=== PATIENT | female | born 1960 | race Caucasian/White ===

== ENCOUNTER 2021-04-09 10:03 | Outpatient (CLI) | payer BC, SELFPAY | END 2021-04-09 10:04 | disposition home or self-care (01) | PROVIDERS: PCP Family Medicine; Visit Provider Urology | DX: Z01.818 Encounter for other preprocedural examination (principal); N39.3 Stress incontinence (female) (male) | CPT/HCPCS: 87086 ==

== ENCOUNTER 2021-04-16 01:45 | Day surgery (SDC) | payer BC, SELFPAY ==
[2021-04-07 08:35] VITALS: BMI 24.5
--- NOTE | 2021-04-07 08:46 | PC.NURSE ---
Report to the Outpatient Waiting Room, entrance under the green pavilion located off [facility], at time 8:30 on date 04/16/21. OR Time: 10:30. - You and your visitor will be asked a series of questions to screen for COVID 19 for your protection. - A mask is required within the hospital. One visitor will be allowed to accompany the patient into the hospital. Patients visitor will be instructed to remain with patient at all times or leave the building. We will allow the visitor to come back to the postoperative area when patient is ready. Preoperative COVID Testing Requirements: No COVID Test needed if: (proof is required; if not received patient will have Rapid Test prior to entry) - Patient has received COVID Vaccine at least 14 days prior to procedure date or - Patient has positive COVID test result within last 90 days of surgery date. COVID Test needed if above criteria is not met Patients may have clear liquids (water, carbonated beverages, clear teas, apple juice) until 3 hours prior to surgery (7:30) with a maximum of 20 ounces. - No food from midnight until time of surgery Take the following medications with a SIP of water the morning of surgery: SYNTHROID Medications to discontinue per physician: N/A Date to take last dose: N/A Please no make-up, nail northern irish, hairspray, perfume, deodorant, or body powder the day of surgery. No jewelry (including any body piercings) or valuables the day of surgery, leave them at home. Please take a shower or bath the night before, or the morning of, surgery with an antibacterial soap. Wear comfortable, loose fitting clothing. - Jewelry must be removed prior to entering the operating room. Rings and piercings that are not removed may be cut off. - The hospital will not accept responsibility for valuables. - Please leave all valuables, including medications, at home the day of surgery. If you are going home after surgery, a licensed [employer] company driver must drive you home. - NO public transportation without another adult. - We recommend that an adult stay with you for 24 hours following discharge. - We also recommend that you do not drive, make important decision, drink alcoholic beverages, or take any drugs that were not prescribed by your health care provider for at least 24 hours after your discharge time. Follow any additional instructions given to you from your surgeon. Telephone instructions given to TAHMINA MIJARES and asked if any additional questions and then verbalized understanding. Patient advised to call surgeon office or pre surgery nurse liaison [phone] if any additional questions.
--- NOTE | 2021-04-11 19:24 | PM.IMHP ---
H&P: HPI History of Present Illness Date/Time: 04/11/21 19:24 61 yo with GEOAVNNI Chief Complaint: GEOVANNI Review of Systems Review of Systems: All systems reviewed & are unremarkable except as noted in HPI and below [facility] Past Medical History Medical History (Updated 04/11/21 @ 19:27 by Michael Meek MD) Arthritis Back pain Glucose intolerance Headache Migraine Ovary removal, prophylactic Thyroid disease Tonsillectomy planned Surgical History Surgical History H/O: hysterectomy Family History Family History Mother Family history of thyroid disease Family history of lung disease Sibling Family history of thyroid disease Father Family history of Alzheimer's disease Social History Social History Smoking status: Never smoker Alcohol intake: never Substance use: never Substance use type: does not use Spiritual care concerns: No Meds Home Medications and Allergies Home Medications Medication Instructions Recorded Confirmed Type cyclosporine 0.05 % eye drops 1 drop EACH EYE Q12H 06/04/19 04/07/21 History desipramine 10 mg tablet 10 mg PO HS 06/04/19 04/07/21 History fluticasone propionate 50 1 spray NASAL DAILY PRN 06/04/19 04/07/21 History mcg/actuation nasal spray,suspension omeprazole 20 mg capsule,delayed 20 mg PO DAILY 06/04/19 04/07/21 History release Synthroid 75 mcg tablet See Rx Instructions PO .COMPLEX 90 01/07/21 04/07/21 Rx Days #26 tablet NS Synthroid 88 mcg tablet See Rx Instructions PO .COMPLEX 90 01/07/21 04/07/21 Rx Days #65 tablet NS Allergies Allergy/AdvReac Type Severity Reaction Status Date / Time adhesive tape AdvReac Itching Verified 04/07/21 08:34 MOST ORAL PAIN PILLS CAUSE Allergy Unknown Vomiting Uncoded 04/07/21 08:33 SEVERE VOMITING \ Exam Narrative: A+O x3 normal breathing + urethral mobility Assessment and Plan Assessment and plan (1) GEOVANNI (stress urinary incontinence, female): Code(s): N39.3 - Stress incontinence (female) (male) Status: Acute Assessment and Plan: urethral sling
--- NOTE | 2021-04-16 07:08 | WPDHPUPDATE1 ---
History and Physical Update Update Date/Time: 04/16/21 07:08 History and Physical has been reviewed, including an updated exam of the patient. There are NO changes in the patient's condition. Risks, benefits, and alternatives have been discussed and questions answered. Patient agrees to proceed with procedure.
[2021-04-16] MEDS: LACTATED RINGERS 1,000 ML 30 ML IV CONT (08:22)
[2021-04-16 08:26] VITALS: BP 138/81; PULSE 72; RESP 18; TEMP 36.8; O2SAT 100; BMI 24.4
--- NOTE | 2021-04-16 08:31 | P.PNAN_ITS ---
Anes - Initial Pre Proc Eval Procedure: Operation Date: 04/16/21 09:45 Proposed Procedures p Urethral Sling - Michael Meek MD Date/Time: 04/16/21 08:31 Surgeon: Michael Meek MD Pre Op Diagnosis: stress incontinence Patient Data Age: 61 Gender: F Height: 1.64 m Weight: 65.6 kg Last Vital Signs Temp 36.8 C 04/16/21 08:26 Pulse 72 04/16/21 08:26 Resp 18 04/16/21 08:26 BP 138/81 04/16/21 08:26 Pulse Ox 100 04/16/21 08:26 Allergies Allergy/AdvReac Type Severity Reaction Status Date / Time adhesive tape AdvReac Itching Verified 04/16/21 08:09 MOST ORAL PAIN PILLS CAUSE Allergy Unknown Vomiting Uncoded 04/16/21 08:09 SEVERE VOMITING \ Home Medications Medication Instructions Recorded Confirmed Type cyclosporine 0.05 % eye drops 1 drop EACH EYE Q12H 06/04/19 04/16/21 History desipramine 10 mg tablet 10 mg PO HS 06/04/19 04/16/21 History fluticasone propionate 50 1 spray NASAL DAILY PRN 06/04/19 04/16/21 History mcg/actuation nasal spray,suspension omeprazole 20 mg capsule,delayed 20 mg PO DAILY 06/04/19 04/16/21 History release Synthroid 75 mcg tablet See Rx Instructions PO .COMPLEX 90 01/07/21 04/16/21 Rx Days #26 tablet NS Synthroid 88 mcg tablet See Rx Instructions PO .COMPLEX 90 01/07/21 04/16/21 Rx Days #65 tablet NS Patient hx anesthesia problems: none Family hx anesthesia problems: none Results Review: All pre-operative results and documents have been reviewed as part of the pre-operative evaluation. COUNT INCLUDES THE [facility] Past Medical History Medical History Arthritis Back pain Glucose intolerance Headache Migraine Ovary removal, prophylactic Thyroid disease Tonsillectomy planned Surgical History Surgical History H/O: hysterectomy Family History Family History Mother Family history of thyroid disease Family history of lung disease Sibling Family history of thyroid disease Father Family history of Alzheimer's disease Social History Social History Smoking status: Never smoker Alcohol intake: never Substance use: never Substance use type: does not use Living arrangements: with family Spiritual care concerns: No Anes - Eval Final PreProcedure Day of Procedure 04/16/21 08:31 Patient weight: normal Heart: regular rate and rhythm Lungs: clear to auscultation Airway: Mallampati scale class II Neurological: alert and oriented Last oral intake: >/= 8 hours ASA classification: II Emergent: no Anesthetic plan: proceed Anesthesia type and monitoring: general GIVS and standard monitoring Results Review: All pre-operative results and documents have been reviewed as part of the pre-operative evaluation. Informed Consent: The patient's anesthetic plan and its attendant risks and benefits were discussed with the patient/family/POA. Questions were solicited and answers provided to the satisfaction of the patient/family/POA.
[2021-04-16] MEDS: ceFAZolin 2 GM/D5W 50 ML 2 GM/50 ML BAG IVPB (09:34)
[2021-04-16] MEDS: KETOROLAC 30 MG/ML VIAL (*BKC) IV PUSH (09:40)
[2021-04-16] MEDS: BUPIVACAINE/EPINEPHRINE 0.25% 10 ML VIAL INFILTRATE (09:46)
[2021-04-16 10:02] VITALS: BP 122/79; PULSE 64; RESP 14; O2SAT 93
--- NOTE | 2021-04-16 10:02 | W.PM.PROC2 ---
Procedure Note - Detailed Date of Procedure 04/16/21 Pre-op Diagnosis stress incontinence Post-op Diagnosis same Procedure Performed mid urethral sling cystoscopy Surgeon Michael Meek MD Indications This is a female with confirm stress urinary incontinence. She desires surgical correction. She understands the risks of bleeding, infection, injury to the urinary tract, vaginal mesh extrusion, urinary tract mesh erosion, obstructive voiding requiring a secondary procedure, hip and leg pain, dyspareunia, inability to improve overactive bladder symptoms. She agrees to proceed. Description of Procedure She was correctly identified. Informed consent obtained. She was brought the operating room. She was given appropriate anesthesia. She was given appropriate perioperative antibiotics. A time-out performed. I marked out the site of the inner thigh incisions. Changes the postmenopausal atrophic vaginitis are noted. I anesthetized the skin and made those incisions. I anesthetized the anterior vaginal wall over the mid urethra. I made a 1 cm incision. I dissected out laterally taking great care not to injure the refilled vaginal wall. I passed the helical trocars. First on the left. Then on the right. I did this from the thigh incision towards the vaginal incision. The sling was connected to the trocars and brought out through the thigh incision. I tensioned the sling appropriately. I cut and the plastic sheaths. I then closed the incision with 2 0 Vicryl. On cystoscopy there is no tumors or surgical artifact. There was no surgical artifact in the urethra. I adjusted the sling surgery to be no leakage on Crede maneuver. I cut the excess sling material. Close incisions with glue. She was awakened and transferred to the PACU in stable condition. Implants Urethral sling Drains No Packing No Pathology none sent Complications No immediate complications Condition stable Disposition PACU
[2021-04-16 10:32] VITALS: BP 127/88; PULSE 57; RESP 14; O2SAT 97
[2021-04-16 10:50] VITALS: BP 131/86; PULSE 63; RESP 14
== END 2021-04-16 11:00 | disposition home or self-care (01) ==
PROVIDERS: PCP Family Medicine; Visit Provider Urology
PROC: (CPT 57288; principal; 2021-04-16 09:45)
DX: N39.3 Stress incontinence (female) (male) (principal); N95.2 Postmenopausal atrophic vaginitis; M19.90 Unspecified osteoarthritis, unspecified site; E03.9 Hypothyroidism, unspecified; E74.39 Other disorders of intestinal carbohydrate absorption
CPT/HCPCS: 57288; C1771; J0690; J1100; J1885; J2405; J2704; J3010; J7120

== ENCOUNTER → 2021-07-24 08:43 | Outpatient (CLI) | payer BC, SELFPAY ==
--- NOTE | ~2021-07-24 | XR_ITS ---
EXAM: XR foot LT min 3V, XR foot RT min 3V DATE: 07/24/2021 09:07 HISTORY: Other specified soft tissue disorders . COMPARISON: None available. FINDINGS: Decreased mineralization. No fracture or dislocation. No lytic or blastic lesion. Mild deg enerative changes in the interphalangeal joints of the toes and midfoot joints. Bilateral plantar ent hesopathy. Bilateral loss of the longitudinal arch. No erosion or periosteal change. Soft tissues wit hin normal limits. IMPRESSION: Osteopenia. Mild degenerative change in the toes and midfoot joints. Pes planus. Plantar enthesopathy. Reviewed, dictated and finalized at location K. IMPRESSION: Osteopenia. Mild degenerative change in the toes and midfoot joints . Pes planus. Plantar enthesopathy.
--- NOTE | ~2021-07-24 | XR_ITS ---
EXAM: XR hand BI arthritis min 3V DATE: 07/24/2021 09:07 HISTORY: Other specified soft tissue disorders . COMPARISON: None available. FINDINGS: Decreased mineralization. No fracture or dislocation. No lytic or blastic lesion. Severe l eft and moderate right trapeziometacarpal joint degenerative change. Narrowing, osteophytosis, and gu ll wing deformities in the DIP joints bilaterally. Similar but less progressive changes are seen in t he PIP joints of the fingers and the thumb interphalangeal joints. No periosteal change. Soft tissues within normal limits. IMPRESSION: Osteoarthritis of the bilateral trapeziometacarpal joints and interphalangeal joints of t he digits, with erosive changes in the DIPs as can be seen with erosive osteoarthritis. Reviewed, dictated and finalized at location K. IMPRESSION: Osteoarthritis of the bilateral trapeziometacarpal joints and inter phalangeal joints of the digits, with erosive changes in the DIPs as can be see n with erosive osteoarthritis.
== END ==
PROVIDERS: PCP Family Medicine; Visit Provider Internal Medicine
DX: M79.89 Other specified soft tissue disorders (principal); M19.072 Primary osteoarthritis, left ankle and foot; M19.071 Primary osteoarthritis, right ankle and foot; M19.042 Primary osteoarthritis, left hand; M19.041 Primary osteoarthritis, right hand
CPT/HCPCS: 73130; 73630

== ENCOUNTER → 2021-11-16 13:25 | Outpatient (CLI) | payer BC, SELFPAY ==
--- NOTE | ~2021-11-16 | DEXA_ITS ---
Bone Density Report Name: TAHMINA MIJARES Age: 61 Sex: Female Ethnicity: White Date of : 1960 Indication: postmenopausal; screening for osteoporosis; height loss; hysterectomy; Referring Provider: RICHARD OWENS Study: Bone densitometry was performed. Exam Date: November 16, 2021 Accession number: [id number] Bone Density: Region BMD T-score Z-score Classification AP Spine (L1-L4) 0.865 -1.7 -0.2 Osteopenia Femoral Neck (Left) 0.764 -0.8 0.5 Normal Total Hip (Left) 0.842 -0.8 0.2 Normal Femoral Neck (Right) 0.776 -0.7 0.6 Normal Total Hip (Right) 0.857 -0.7 0.3 Normal Total Hip Mean 0.850 -0.8 0.3 Normal World Health Organization criteria for BMD impression classify patients as: Normal (T-score at or above -1.0), Osteopenia (T-score between -1.0 and -2.5), or Osteoporosis (T-score at or below -2.5). 10-year Fracture Risk(1): Major Osteoporotic Fracture 7.0% Hip Fracture 0.3% Reported Risk Factors: [place] (), Neck BMD=0.764, BMI=24.5 (1) FRAX(R) Version 3.08. Fracture probability calculated for an untreated patient. Fracture probability may be lower if the patient has received treatment. Clinical Information Provided by Patient: Has used the following medications: Vitamin D Has the following medical conditions: Hysterectomy Patient maximum height was 66 Menopause Age: 51 Onset of menses at age 14 Number of children 3 Impression: The patient has low bone mass, based on the Total Spine T-score. The patient has an estimated ten-year risk of hip fracture of 0.3% and an estimated ten-year risk of major fracture of 7%, based on the WHO FRAX algorithm. Discussion: BONE DENSITY IS LOW AT ONE OR MORE SKELETAL SITES. This patient's lowest T-score is low at one or more skeletal sites. It meets the World Health Organization's (WHO) criteria for ?low bone mass? (T-score between -1.0 and -2.5). The patient's 10-year risk of fracture as calculated by FRAX is less than the threshold where pharmacological therapy is recommended by the National Osteoporosis Foundation (NOF). However, all treatment decisions require clinical judgment and consideration of individual patient factors, including patient preferences, comorbidities, previous drug use, risk factors not captured in the FRAX model (e.g., frailty, falls, vitamin D deficiency, increased bone turnover, interval significant decline in bone density) and possible under or overestimation of fracture risk by FRAX. The patient should follow a healthful lifestyle (good nutrition with adequate calcium and vitamin D, and appropriate weight-bearing exercise). Follow-Up: Consider repeating this study in 2 to 3 years to reassess this patient's status, or sooner if there is some new clinical indication. Reported by: WALE on 11/16/2021 1:51:00 PM.
== END ==
PROVIDERS: PCP Family Medicine; Visit Provider Family Medicine
DX: Z78.0 Asymptomatic menopausal state (principal); M85.859 Other specified disorders of bone density and structure, unspecified thigh
CPT/HCPCS: 77080

== ENCOUNTER → 2022-12-20 11:33 | Outpatient (CLI) | payer BC, SELFPAY ==
--- NOTE | ~2022-12-20 | XR_ITS ---
XR chest 2V DATE: 12/20/2022 11:51 INDICATION: Cough TECHNIQUE: 2 views COMPARISON: None FINDINGS: Heart size is within normal range. There is aortic calcification and tortuosity. No hilar or mediastinal enlargement. Moderate bilateral hyperinflation. No pulmonary infiltrate or consolidat ion, pulmonary vascular congestion or pleural effusion or pneumothorax. Diffuse osteopenia. IMPRESSION: Moderate hyperinflation; otherwise no active cardiopulmonary disease Reviewed, dictated and finalized at location L. IMPRESSION: Moderate hyperinflation; otherwise no active cardiopulmonary diseas e
== END ==
PROVIDERS: PCP Internal Medicine; Visit Provider Family Medicine
DX: R05.9 Cough, unspecified (principal); R91.8 Other nonspecific abnormal finding of lung field
CPT/HCPCS: 71046

== ENCOUNTER → 2022-12-27 07:33 | Outpatient (CLI) | payer BC, SELFPAY ==
--- NOTE | ~2022-12-27 | US_ITS ---
Limited Abdominal Sonogram: Real-time sonographic imaging of the right upper quadrant was performed. Clinical History: Right upper quadrant pain Findings: The liver appears normal with no evidence of mass lesion or bile duct dilatation. Main por el vein demonstrates normal direction of flow. The gallbladder is well distended, and contains possi ble minimal sludge. The common bile duct measures 4 mm. The visualized pancreas, aorta, and IVC are unremarkable. Impression: Possible minimal gallbladder sludge. Reviewed, dictated and finalized at location M. CTION MOLD TOOLING TECHNICIAN Impression: Possible minimal gallbladder sludge.
== END ==
PROVIDERS: PCP Family Medicine; Visit Provider Family Medicine
DX: R10.11 Right upper quadrant pain (principal)
CPT/HCPCS: 76705

== ENCOUNTER 2023-01-02 08:16 | Outpatient (CLI) | payer BC, SELFPAY ==
--- NOTE | ~2023-01-02 | NM_ITS ---
EXAMINATION: NM hepatobiliary wo pharm DATE: 01/02/2023 11:46 INDICATION: Right upper quadrant abdominal pain. COMPARISON: Ultrasound 11/26/2022 TECHNIQUE: 5.2 mCi Tc-99m mebrofenin (Choletec) was administered intravenously. Scintigraphic images of the abdomen were obtained for one hour. Then, the patient drank 8 oz Ensure, and imaging was cont inued for 60 minutes. FINDINGS: There is normal clearance of radiotracer from the blood pool. There is homogeneous tracer u ptake by the liver. Activity progresses to the bowel and gallbladder. Gallbladder ejection fraction (GBEF) was 45%. Note that with this technique, normal GBEF >= 33%. IMPRESSION: 1. Normal hepatobiliary scintigraphy. Reviewed, dictated and finalized at location A. E COMMERCE STRATEGIST
== END 2023-01-02 08:17 | disposition home or self-care (01) ==
LOC: ANHIMG 08:19
PROVIDERS: PCP Family Medicine; Visit Provider Family Medicine
DX: R10.11 Right upper quadrant pain (principal)
CPT/HCPCS: 78226; A9537

== ENCOUNTER 2023-07-20 11:52 | Outpatient (CLI) | payer BC, SELFPAY ==
--- NOTE | ~2023-07-20 | US_ITS ---
EXAMINATION: US thyroid DATE: 07/20/2023 12:11 INDICATION: Dysphagia, unspecified. TECHNIQUE: Multiple ultrasound images of the thyroid were obtained. COMPARISON: None. FINDINGS: The right thyroid lobe measures 3.5 x 1.3 x 1.3 cm. The left thyroid lobe measures 4.0 x 1.3 x 1.2 c m. In the right thyroid lobe, there is a 2 mm nodule. IMPRESSION: 1. Small thyroid nodule, likely not clinically significant. No follow-up is needed. Reviewed, dictated and finalized at location A. IMPRESSION: 1. Small thyroid nodule, likely not clinically significant. No follow-up is nee ded.
== END 2023-07-20 11:53 ==
PROVIDERS: PCP Family Medicine; Visit Provider Internal Medicine Endocrinology, Diabetes & Metabolism
DX: E04.1 Nontoxic single thyroid nodule (principal)
CPT/HCPCS: 76536

== ENCOUNTER 2023-09-13 10:28 | Outpatient (CLI) | payer BC, SELFPAY ==
--- NOTE | ~2023-09-13 | XR_ITS ---
[id number] Ordering provider: Geno Mariee History: . R rib pain,R shoulder pain,R arm pain after fall . Comparison: None. FINDINGS: BONES: Possible fracture in the right posterior sixth, seventh and eighth ribs. These can be a summat ion shadows. LUNGS: No effusions or infiltrates. No pneumothorax. SOFT TISSUES: Normal. IMPRESSION: Possible fractures in the right sixth, seventh and eighth ribs. Follow-up advised. Reviewed, dictated and finalized at location A. IMPRESSION: Possible fractures in the right sixth, seventh and eighth ribs. Follow-up advis ed.
--- NOTE | ~2023-09-13 | XR_ITS ---
XR humerus RT Ordering provider: Mary Ellen Lake History: . R rib pain,R shoulder pain,R arm pain after fall . Comparison: None. FINDINGS: BONES: No acute fracture or dislocation. JOINT SPACES: Normal. SOFT TISSUES: Normal. IMPRESSION: No acute osseous abnormality right humerus. Reviewed, dictated and finalized at location A.
--- NOTE | ~2023-09-13 | XR_ITS ---
XR shoulder RT min 2V Ordering provider: Mary Ellen Lake History: . R rib pain,R shoulder pain,R arm pain after fall . Comparison: None. FINDINGS: BONES: No acute fracture or dislocation. JOINT SPACES: The acromioclavicular joint is normal. The glenohumeral joint is normal. SOFT TISSUES: Normal. IMPRESSION: No acute osseous abnormality right shoulder. Reviewed, dictated and finalized at location A.
== END 2023-09-13 10:29 ==
PROVIDERS: PCP Family Medicine
DX: R07.81 Pleurodynia (principal); M25.511 Pain in right shoulder
CPT/HCPCS: 71101; 73030; 73060

== ENCOUNTER 2024-02-29 08:33 | Outpatient (CLI) | payer BC, SELFPAY ==
--- NOTE | ~2024-02-29 | DEXA_ITS ---
Bone Density Report Name: TAHMINA MIJARES Age: 63 Sex: Female Ethnicity: White Date of : 1960 Indication: postmenopausal; screening for osteoporosis; height loss; hysterectomy; Referring Provider: ALYSIA WHEELER Study: Bone densitometry was performed. Exam Date: February 29, 2024 Accession number: [id number] Bone Density: Region BMD T-score Z-score Classification AP Spine(L1-L4) 0.872 -1.6 0.0 Osteopenia Femoral Neck (Left) 0.717 -1.2 0.2 Osteopenia Total Hip (Left) 0.845 -0.8 0.3 Normal Femoral Neck (Right) 0.752 -0.9 0.5 Normal Total Hip (Right) 0.868 -0.6 0.5 Normal Total Hip Mean 0.856 -0.7 0.4 Normal World Health Organization criteria for BMD impression classify patients as: Normal (T-score at or above -1.0), Osteopenia (T-score between -1.0 and -2.5), or Osteoporosis (T-score at or below -2.5). 10-year Fracture Risk(1): Major Osteoporotic Fracture 7.8% Hip Fracture 0.6% Reported Risk Factors: [place] (), Neck BMD=0.717, BMI=24.0 (1) FRAX(R) Version 3.08. Fracture probability calculated for an untreated patient. Fracture probability may be lower if the patient has received treatment. Clinical Information Provided by Patient: Has used the following medications: Vitamin D Has the following medical conditions: Hysterectomy Patient maximum height was 67 Onset of menses at age 14 Number of children 3 Impression: The patient has low bone mass, based on the Total Spine T-score. The patient has an estimated ten-year risk of hip fracture of 0.6% and an estimated ten-year risk of major fracture of 7.8%, based on the WHO FRAX algorithm. Discussion: BONE DENSITY IS LOW AT ONE OR MORE SKELETAL SITES. This patient's lowest T-score is low at one or more skeletal sites. It meets the World Health Organization's (WHO) criteria for ?low bone mass? (T-score between -1.0 and -2.5). The patient's 10-year risk of fracture as calculated by FRAX is less than the threshold where pharmacological therapy is recommended by the National Osteoporosis Foundation (NOF). However, all treatment decisions require clinical judgment and consideration of individual patient factors, including patient preferences, comorbidities, previous drug use, risk factors not captured in the FRAX model (e.g., frailty, falls, vitamin D deficiency, increased bone turnover, interval significant decline in bone density) and possible under or overestimation of fracture risk by FRAX. The patient should follow a healthful lifestyle (good nutrition with adequate calcium and vitamin D, and appropriate weight-bearing exercise). Follow-Up: Consider repeating this study in 2 to 3 years to reassess this patient's status, or sooner if there is some new clinical indication. Reported by: MARISOL on 02/29/2024 9:06:00 AM. Reviewed, dictated and finalized at location A. NADEEN
== END 2024-02-29 08:34 | disposition home or self-care (01) ==
LOC: ANHIMG 08:37
PROVIDERS: PCP Family Medicine; Visit Provider Internal Medicine Endocrinology, Diabetes & Metabolism
DX: Z78.0 Asymptomatic menopausal state (principal); E03.9 Hypothyroidism, unspecified; M85.89 Other specified disorders of bone density and structure, multiple sites
CPT/HCPCS: 77080

== ENCOUNTER 2024-06-10 12:11 | Outpatient (CLI) | payer BC, SELFPAY ==
--- NOTE | ~2024-06-10 | XR_ITS ---
XR hip LT 2V w AP pelvis Ordering provider: Corona Kern MD History: . M25.552 - Pain in left hip . Comparison: None. FINDINGS: BONES: No acute fracture or dislocation. HIP JOINT SPACES: Severe bilateral hip osteoarthritic changes. SACROILIAC JOINT SPACES/LUMBAR SPINE: The sacroiliac joint spaces are normal. Mild degenerative bradley es of the visualized lower lumbar spine. PUBIC SYMPHYSIS: Pubic symphysitis. SOFT TISSUES: Normal. IMPRESSION: No acute osseous abnormality pelvis and left hip. Bilateral severe hip osteoarthritic changes. Reviewed, dictated and finalized at location A.
== END 2024-06-10 12:12 | disposition home or self-care (01) ==
LOC: MICIMG 12:12
PROVIDERS: PCP Family Medicine; Visit Provider Family Medicine
DX: M16.0 Bilateral primary osteoarthritis of hip (principal)
CPT/HCPCS: 73502